=== PATIENT | female | born 1950 | race Caucasian/White ===

== ENCOUNTER → 2016-12-22 | Day surgery (SDC) | payer OTHER ==
[~2016-12-22] MED LIST: PANTOPRAZOLE SO40 MG PO; TRAMADOL HCL50 M1 PO; TRAMADOL HCL50 M2 PO; TYLENOL EXTRA500 M1 PO
--- NOTE | ~2016-12-22 | OR ---
Unit #: [id number] #: [id number] Patient: SARINA PALMA [id number] [address] [address] [id number] O MR#: [id number] NAME: SARINA PALMA ROOM: Date of Procedure: 12/22/2016 Admission Date: 12/22/2016 Surgeon: Juan Vallecillo M.D. : 1950 Attending Physician: Juan Vallecillo M.D. Referring Physician: Juan Vallecillo M.D. Primary Care Physician: Primary Care Physician No OPERATIVE REPORT PROCEDURE PERFORMED Esophagogastroduodenoscopy with balloon dilatation. INDICATIONS FOR PROCEDURE A 66-year-old female with significant dysphagia to both solids and liquids, undergoing evaluation with upper endoscopy. MEDICATIONS Monitored anesthesia. POSTOPERATIVE FINDINGS 1. Ulcerative esophagitis involving distal esophagus with multiple scarring and esophageal stricture, dilation carried out with a balloon to 18 mm. 2. Large hiatal hernia. 3. Gastritis, mild. 4. Normal duodenum and distal duodenum. PLAN PPI therapy. Reflux precautions. Repeat dilation after 3 months. DESCRIPTION OF PROCEDURE The patient was explained of the procedure, risks, and benefits along with risks and benefits of anesthesia. She was brought to the endoscopy room. Propofol anesthesia was given. Bite block was placed. The scope was passed down the mouth into the esophagus, stomach, duodenum, and distal duodenum. Findings as described. No biopsies were taken. Balloon dilation of the esophageal stricture was carried out successfully. Gently, the scope was pulled out. She tolerated it well. No major complications were seen. Dictated by... Marie James/maile TD: 12/22/2016 22:26 JOB #: [id number] CC: Maribeth Sheffield M.D. Unit #: [id number] #: [id number] Patient: SARINA PALMA OPERATIVE REPORT X Juan Vallecillo MD X PROCEDURE OPERATIVE NOTE
== END | disposition home or self-care (01) ==
LOC: COPS 06:35
DX: K22.10 Ulcer of esophagus without bleeding (principal); K22.2 Esophageal obstruction; K44.9 Diaphragmatic hernia without obstruction or gangrene; K29.70 Gastritis, unspecified, without bleeding; K21.9 Gastro-esophageal reflux disease without esophagitis; G47.30 Sleep apnea, unspecified; R01.1 Cardiac murmur, unspecified; M19.90 Unspecified osteoarthritis, unspecified site; Z79.899 Other long term (current) drug therapy; Z90.711 Acquired absence of uterus with remaining cervical stump; Z98.890 Other specified postprocedural states

== ENCOUNTER → 2017-03-31 | Day surgery (SDC) | payer OTHER ==
--- NOTE | ~2017-03-31 | OR ---
Unit #: [id number] #: [id number] Patient: SARINA PALMA [id number] [address] [address] [id number] O MR#: [id number] NAME: SARINA PALMA ROOM: Date of Procedure: 03/31/2017 Admission Date: 03/31/2017 Surgeon: Juan Vallecillo M.D. : 1950 Attending Physician: Juan Vallecillo M.D. Primary Care Physician: Maribeth Sheffield M.D. OPERATIVE REPORT PROCEDURES PERFORMED Esophagogastroduodenoscopy with biopsy and esophagogastroduodenoscopy with balloon dilatation. INDICATIONS FOR PROCEDURE The patient with significant dysphagia, chronic gastroesophageal reflux disease symptoms, undergoing evaluation with upper endoscopy. MEDICATIONS Monitored anesthesia. POSTOPERATIVE FINDINGS 1. Small segment of Valadez esophagus. Biopsies were taken. 2. Esophageal ring at gastroesophageal junction, dilated with a balloon to 20 mm. 3. Large hiatal hernia. 4. Chronic appearing gastritis, biopsies were taken. 5. Normal duodenum and distal duodenum. PLAN Continue PPI therapy and reflux precautions. Further dilation based on symptoms. Repeat upper endoscopy in 3 years for Valadez surveillance. DESCRIPTION OF PROCEDURE The patient was explained of the procedure, risks, and benefits, along with the risks and benefits of anesthesia. She was brought to the endoscopy room. Propofol anesthesia was given. Bite block was placed. The scope was passed down the mouth into esophagus, stomach, duodenum, and distal duodenum. Findings as described. Biopsies were taken. Balloon dilation was carried out to the esophagus. Gently, the scope was pulled out. She tolerated it well. Dictated by... Marie James/maile TD: 03/31/2017 15:36 JOB #: [id number] Unit #: [id number] #: [id number] Patient: SARINA PALMA OPERATIVE REPORT Page 1 of 1 X Juan Vallecillo MD X PROCEDURE OPERATIVE NOTE
== END | disposition home or self-care (01) ==
LOC: COPS 03-19 09:30
DX: K21.0 Gastro-esophageal reflux disease with esophagitis (principal); K22.2 Esophageal obstruction; K29.50 Unspecified chronic gastritis without bleeding; K44.9 Diaphragmatic hernia without obstruction or gangrene; K21.9 Gastro-esophageal reflux disease without esophagitis; Z79.891 Long term (current) use of opiate analgesic; Z79.899 Other long term (current) drug therapy; Z90.711 Acquired absence of uterus with remaining cervical stump; Z90.49 Acquired absence of other specified parts of digestive tract; Z98.890 Other specified postprocedural states
CPT/HCPCS: 88305; 88312